=== PATIENT | male | born 1960 | race Caucasian/White ===

== ENCOUNTER 2018-10-16 19:16 | Emergency (ER) | payer MEDICARE ==
[2018-10-16 19:34] VITALS: RESP 18; TEMP 98
[2018-10-16] MEDS ORDERED: LORazepam 2 MG/ML INJ IV STA (19:53)
[2018-10-16] MEDS ORDERED: SODIUM CHLORIDE 0.9% 1,000 ML IV ONE ×2 (19:53)
--- NOTE | 2018-10-16 20:20 | ED ---
Altered Mental Status HPI - General Chief Complaint: Altered Mental Status Stated Complaint: Altered Mental Time Seen by Provider: 10/16/18 19:26 Source: patient, family, EMS, RN notes reviewed, old records reviewed Mode of arrival: EMS Limitations: altered mental status - History of Present Illness Initial Comments: This is a 58-year-old male the ER for evaluation. Patient has complicated medical and psychiatric history. Patient suffers from Parkinson's disease and knows early-onset dementia multiple new and different medications with multiple recent medication changes. Patient has a significant hallucinations today. Family state patient for geriatric psych and Parkinson's specialist Rocael Schumacher secondary to weather unable to give patient there, patient brought to our emergency room by EMS for evaluation regarding hallucinations altered mental status not acting appropriately. Patient is a poor strain secondary to altered mental status. is at bedside reports history. MD Complaint: altered mental status, confusion, other (Significant hallucinations) -: days(s) Severity: severe Consistency of Symptoms: getting worse Context: history of similar presentation (Parkinsonian disease and dementia) Associated Symptoms: diaphoresis, other (Confusion) - Related Data Home Medications Medication Instructions Recorded Confirmed Aspirin EC [Ecotrin] 81 mg PO DAILY 09/23/14 10/16/18 Finasteride [Proscar] 5 mg PO HS 09/23/14 10/16/18 [place]-3 Fatty Acids [[place]-3] 1,000 mg PO DAILY 09/23/14 10/16/18 Vitamin B Complex 1 tab PO DAILY 09/23/14 10/16/18 traMADol HCl [Ultram] 50 mg PO TID 09/23/14 10/16/18 Baclofen [Lioresal] 10 mg PO QID PRN 10/16/18 10/16/18 Benazepril HCl [Lotensin] 40 mg PO HS 10/16/18 10/16/18 Carbidopa-Levodopa 25-100 mg 3 tab PO 5XD@06,09,12,15,18 10/16/18 10/16/18 [Sinemet 25-100] Carbidopa/Levodopa [Sinemet CR 1 tab PO HS@2100 10/16/18 10/16/18 50-200 mg] Cholecalciferol [Vitamin D3 (25 1,000 unit PO DAILY 10/16/18 10/16/18 Mcg = 1000 Iu)] DULoxetine HCL [Cymbalta] 90 mg PO HS 10/16/18 10/16/18 Memantine [Namenda] 10 mg PO BID 10/16/18 10/16/18 Omeprazole 40 mg PO DAILY 10/16/18 10/16/18 QUEtiapine [SEROquel] 50 mg PO HS 10/16/18 10/16/18 clonazePAM [KlonoPIN] 1 mg PO HS 10/16/18 10/16/18 rOPINIRole HCL [Requip] 0.5 mg PO HS@1800 10/16/18 10/16/18 Allergies Allergy/AdvReac Type Severity Reaction Status Date / Time Penicillins Allergy Unknown Swelling, Verified 10/16/18 20:09 Hives Tetanus Vaccines and Toxoid Allergy Unknown Swelling, Verified 10/16/18 20:09 [Tetanus Vaccines & Toxoid] Hives Review of Systems ROS Statement: Those systems with pertinent positive or pertinent negative responses have been documented in the HPI. ROS Other: All systems not noted in ROS Statement are negative. Past Medical History Past Medical History: Hypertension, Mitral Valve Prolapse (MVP), Neurologic Disorder, Prostate Disorder Additional Past Medical History / Comment(s): PARKINSONS DISEASE, RLS, TREMORS WITH RANDOM LEG MOVEMENT, RIGIDITY-SOME DIFFICULTY WALKING AT TIMES USES CANE PRN., HX OF BACK INJURY WITH PINCHED NERVE & BACK PAIN-SEEING DR VICENTE FOR INJECTIONS &TX., ENLARGED PROSTATE AND LEAKY BLADDER., TESTING SCHEDULED FOR SLEEP APNEA. History of Any Multi-Drug Resistant Organisms: None Reported Additional Past Surgical History / Comment(s): FINGER SURGERY, LYMPH NODE REMOVED RIGHT AXCILLA. Past Anesthesia/Blood Transfusion Reactions: No Reported Reaction Past Psychological History: Anxiety Smoking Status: Never smoker Past Alcohol Use History: None Reported Past Drug Use History: None Reported - Past Family History Brother(s) Family Medical History: Cancer Additional Family Medical History / Comment(s): FROM PROSTATE CANCER. General Exam Limitations: altered mental status General appearance: alert, in no apparent distress Head exam: Present: atraumatic, normocephalic, normal inspection Eye exam: Present: normal appearance, EOMI. Absent: scleral icterus, conjunctival injection, periorbital swelling ENT exam: Present: normal exam, mucous membranes moist Neck exam: Present: normal inspection. Absent: tenderness, meningismus, lymphadenopathy Respiratory exam: Present: normal lung sounds bilaterally. Absent: respiratory distress, wheezes, rales, rhonchi, stridor Cardiovascular Exam: Present: regular rate, normal rhythm, normal heart sounds. Absent: systolic murmur, diastolic murmur, rubs, gallop, clicks GI/Abdominal exam: Present: soft, normal bowel sounds. Absent: distended, tenderness, guarding, rebound, rigid Extremities exam: Present: normal inspection, full ROM, normal capillary refill. Absent: tenderness, pedal edema, joint swelling, calf tenderness Back exam: Present: normal inspection Neurological exam: Present: alert, oriented X3, CN II-XII intact Psychiatric exam: Present: normal affect, normal mood Skin exam: Present: warm, dry, intact, normal color. Absent: rash Course Vital Signs 10/16/18 10/16/18 10/17/18 19:21 23:40 03:30 Temperature 98 F 98 F Pulse Rate 80 78 Respiratory 18 18 Rate Blood Pressure 166/118 133/88 145/90 O2 Sat by Pulse 95 98 95 Oximetry - Reevaluation(s) Reevaluation #1: 10/16/18 20:19 Medical records reviewed Reevaluation #2: 10/16/18 20:57 Patient is severe dementia and hallucinations 10/16/18 20:57 Is improving with medication started restlessness Reevaluation #3: 10/16/18 20:58 Spoke with at length regarding symptoms and treatment care, she will improve her transfer for inpatient treatment Medical Decision Making - Medical Decision Making 58 male presented today for evaluation of worsening dementia, hallucinations, patient at this point has become hasn't to himself from people around him, patient is urged inpatient psychiatric evaluation by his neurologist as well as geriatric psychiatry - Lab Data Result diagrams: 10/16/18 20:30 10/16/18 20:30 Lab Results 10/16/18 10/16/18 10/16/18 Range/Units 20:30 20:30 20:30 WBC 9.5 (3.8-10.6) k/uL RBC 4.79 (4.30-5.90) m/uL Hgb 14.4 (13.0-17.5) gm/dL Hct 41.2 (39.0-53.0) % MCV 85.9 (80.0-100.0) fL MCH 30.1 (25.0-35.0) pg MCHC 35.0 (31.0-37.0) g/dL RDW 12.7 (11.5-15.5) % Plt Count 256 (150-450) k/uL Neutrophils % 74 % Lymphocytes % 17 % Monocytes % 6 % Eosinophils % 1 % Basophils % 1 % Neutrophils # 7.0 (1.3-7.7) k/uL Lymphocytes # 1.6 (1.0-4.8) k/uL Monocytes # 0.6 (0-1.0) k/uL Eosinophils # 0.1 (0-0.7) k/uL Basophils # 0.1 (0-0.2) k/uL PT (9.0-12.0) sec INR (<1.2) APTT (22.0-30.0) sec Sodium 140 (137-145) mmol/L Potassium 3.9 (3.5-5.1) mmol/L Chloride 105 (98-107) mmol/L Carbon Dioxide 25 (22-30) mmol/L Anion Gap 10 mmol/L BUN 18 (9-20) mg/dL Creatinine 0.76 (0.66-1.25) mg/dL Est GFR (CKD-EPI)AfAm >90 (>60 ml/min/1.73 sqM) Est GFR (CKD-EPI)NonAf >90 (>60 ml/min/1.73 sqM) Glucose 100 H (74-99) mg/dL Calcium 9.6 (8.4-10.2) mg/dL Total Bilirubin 0.6 (0.2-1.3) mg/dL AST 33 (17-59) U/L ALT 23 (21-72) U/L Alkaline Phosphatase 77 (38-126) U/L Ammonia <9 (<30) umol/L Creatine Kinase 255 H (55-170) U/L Troponin I (0.000-0.034) ng/mL Total Protein 7.1 (6.3-8.2) g/dL Albumin 4.6 (3.5-5.0) g/dL Urine Color Urine Appearance (Clear) Urine pH (5.0-8.0) Ur Specific [place] (1.001-1.035) Urine Protein (Negative) Urine Glucose (UA) (Negative) Urine Ketones (Negative) Urine Blood (Negative) Urine Nitrite (Negative) Urine Bilirubin (Negative) Urine Urobilinogen (<2.0) mg/dL Ur Leukocyte Esterase (Negative) Salicylates <1.0 mg/dL Urine Opiates Screen (NotDetected) Ur Oxycodone Screen (NotDetected) Urine Methadone Screen (NotDetected) Ur Propoxyphene Screen (NotDetected) Acetaminophen <10.0 ug/mL Ur Barbiturates Screen (NotDetected) Phenytoin <3.0 ug/mL Valproic Acid <10.0 ug/mL Carbamazepine <3.0 ug/mL U Tricyclic Antidepress (NotDetected) Ur Phencyclidine Scrn (NotDetected) Ur Amphetamines Screen (NotDetected) U Methamphetamines Scrn (NotDetected) U Benzodiazepines Scrn (NotDetected) Urine Cocaine Screen (NotDetected) U Marijuana (THC) Screen (NotDetected) Serum Alcohol <10 mg/dL 10/16/18 10/16/18 10/16/18 Range/Units 20:30 20:30 20:30 WBC (3.8-10.6) k/uL RBC (4.30-5.90) m/uL Hgb (13.0-17.5) gm/dL Hct (39.0-53.0) % MCV (80.0-100.0) fL MCH (25.0-35.0) pg MCHC (31.0-37.0) g/dL RDW (11.5-15.5) % Plt Count (150-450) k/uL Neutrophils % % Lymphocytes % % Monocytes % % Eosinophils % % Basophils % % Neutrophils # (1.3-7.7) k/uL Lymphocytes # (1.0-4.8) k/uL Monocytes # (0-1.0) k/uL Eosinophils # (0-0.7) k/uL Basophils # (0-0.2) k/uL PT 10.2 (9.0-12.0) sec INR 1.0 (<1.2) APTT 24.2 (22.0-30.0) sec Sodium (137-145) mmol/L Potassium (3.5-5.1) mmol/L Chloride (98-107) mmol/L Carbon Dioxide (22-30) mmol/L Anion Gap mmol/L BUN (9-20) mg/dL Creatinine (0.66-1.25) mg/dL Est GFR (CKD-EPI)AfAm (>60 ml/min/1.73 sqM) Est GFR (CKD-EPI)NonAf (>60 ml/min/1.73 sqM) Glucose (74-99) mg/dL Calcium (8.4-10.2) mg/dL Total Bilirubin (0.2-1.3) mg/dL AST (17-59) U/L ALT (21-72) U/L Alkaline Phosphatase (38-126) U/L Ammonia (<30) umol/L Creatine Kinase (55-170) U/L Troponin I <0.012 (0.000-0.034) ng/mL Total Protein (6.3-8.2) g/dL Albumin (3.5-5.0) g/dL Urine Color Yellow Urine Appearance Clear (Clear) Urine pH 5.5 (5.0-8.0) Ur Specific [place] 1.021 (1.001-1.035) Urine Protein Trace H (Negative) Urine Glucose (UA) Negative (Negative) Urine Ketones Negative (Negative) Urine Blood Negative (Negative) Urine Nitrite Negative (Negative) Urine Bilirubin Negative (Negative) Urine Urobilinogen 2.0 (<2.0) mg/dL Ur Leukocyte Esterase Negative (Negative) Salicylates mg/dL Urine Opiates Screen Not Detected (NotDetected) Ur Oxycodone Screen Not Detected (NotDetected) Urine Methadone Screen Not Detected (NotDetected) Ur Propoxyphene Screen Not Detected (NotDetected) Acetaminophen ug/mL Ur Barbiturates Screen Not Detected (NotDetected) Phenytoin ug/mL Valproic Acid ug/mL Carbamazepine ug/mL U Tricyclic Antidepress Detected H (NotDetected) Ur Phencyclidine Scrn Not Detected (NotDetected) Ur Amphetamines Screen Not Detected (NotDetected) U Methamphetamines Scrn Not Detected (NotDetected) U Benzodiazepines Scrn Not Detected (NotDetected) Urine Cocaine Screen Not Detected (NotDetected) U Marijuana (THC) Screen Not Detected (NotDetected) Serum Alcohol mg/dL - EKG Data -: EKG Interpreted by Me (EKG shows sinus rhythm rate of 84, CO 160, QRS 70, QTc 449) Disposition Clinical Impression: Altered mental status, Parkinsons disease, Parkinson's disease dementia Disposition: HOME SELF-CARE Condition: Fair Instructions (If sedation given, give patient instructions): Altered Mental Status (ED) Is patient prescribed a controlled substance at d/c from ED?: No Referrals: Lucretia Stewart DO [Primary Care Provider] - 1-2 days - Out of Hospital Transfer - Req. Specs Out of Hospital Transfer - Requested Specifics: Other Emergency Center ([facility])
[2018-10-16] MEDS ORDERED: BACLOFEN 10 MG TAB PO PRN (20:35)
[2018-10-16 20:42] LABS: Appearance,Urine Clear (Clear); Bilirubin,Urine Negative (Negative); Blood,Urine Negative (Negative); Color,Urine Yellow; Glucose,Urine (UA) Negative (Negative); Ketones,Urine Negative (Negative); Leukocyte Esterase,Urine Negative (Negative); Nitrite,Urine Negative (Negative); PH, Urine 5.5 (5.0-8.0); Protein,Urine Trace (Negative); Specific Gravity,Urine 1.021 (1.001-1.035)
[2018-10-16 20:43] LABS: Basophils # (A) 0.1 k/uL (0-0.2); Basophils % (A) 1 %; Eosinophils # (A) 0.1 k/uL (0-0.7); Eosinophils % (A) 1 %; HCT 41.2 % (39.0-53.0); HGB 14.4 gm/dL (13.0-17.5); Lymphocytes # (A) 1.6 k/uL (1.0-4.8); Lymphocytes % (A) 17 %; MCH 30.1 pg (25.0-35.0); MCV 85.9 fL (80.0-100.0); Monocytes # (A) 0.6 k/uL (0-1.0); Monocytes % (A) 6 %; Neutrophils % (A) 74 %; Platelet Count 256 k/uL (150-450); RBC 4.79 m/uL (4.30-5.90); RDW 12.7 % (11.5-15.5); WBC 9.5 k/uL (3.8-10.6)
[2018-10-16 20:50] LABS: Amphetamine Screen,Urine Not Detected (NotDetected); Barbiturate Screen,Urine Not Detected (NotDetected); Benzodiazepines Screen,Urine Not Detected (NotDetected); Cocaine Screen,Urine Not Detected (NotDetected); Methadone Screen, Urine Not Detected (NotDetected); Opiate Screen,Urine Not Detected (NotDetected); Oxycodone Screen, Urine Not Detected (NotDetected); Phencyclidine Screen,Urine Not Detected (NotDetected); Tricyclic Antidepressant,Urine Detected (NotDetected); Urn Cannabinoid Scrn Not Detected (NotDetected)
[2018-10-16 20:54] LABS: Partial Thromboplastin Time 24.2 sec (22.0-30.0); Prothrombin Time 10.2 sec (9.0-12.0)
[2018-10-16 20:55] LABS: ALT 23 U/L (21-72); AST 33 U/L (17-59); Acetaminophen <10.0 ug/mL; African American GFR (CKD) >90 (>60 ml/min/1.73 sqM); Albumin 4.6 g/dL (3.5-5.0); Alcohol <10 mg/dL; Alkaline Phosphatase 77 U/L (38-126); Anion Gap 10 mmol/L; Blood Urea Nitrogen 18 mg/dL (9-20); Calcium 9.6 mg/dL (8.4-10.2); Carbamazepine (Tegretol) <3.0 ug/mL; Carbon Dioxide 25 mmol/L (22-30); Chloride 105 mmol/L (98-107); Creatine Kinase 255 U/L (55-170); Glucose 100 mg/dL (74-99); Phenytoin (Dilantin) <3.0 ug/mL; Potassium 3.9 mmol/L (3.5-5.1); Salicylate <1.0 mg/dL; Sodium 140 mmol/L (137-145); Total Bilirubin 0.6 mg/dL (0.2-1.3); Total Protein 7.1 g/dL (6.3-8.2)
[2018-10-16] MEDS ORDERED: MEMANTINE 10 MG TAB PO SCH (21:00)
[2018-10-16] MEDS ORDERED: LISINOPRIL 20 MG TAB PO SCH (21:00)
[2018-10-16] MEDS ORDERED: QUEtiapine 25 MG TAB PO SCH (21:00)
[2018-10-16] MEDS ORDERED: clonazePAM 0.5 MG TAB PO SCH (21:00)
[2018-10-16] MEDS ORDERED: DULoxetine HCL 30 MG CAPSULE.DR PO SCH (21:00)
[2018-10-16] MEDS ORDERED: FINASTERIDE 5 MG TAB PO SCH (21:00)
[2018-10-16] MEDS ORDERED: CARBIDOPA-LEVODOPA ER 50-200MG 1 EACH TABLET.ER PO SCH (21:00)
[2018-10-16] MEDS: clonazePAM 1 MG TAB PO STA ×2 (21:16→21:26)
[2018-10-16] MEDS ORDERED: traMADol 50 MG TAB PO SCH (22:00)
[2018-10-17 03:31] VITALS: BP 145/90; PULSE 78
[2018-10-17] MEDS ORDERED: CARBIDOPA-LEVODOPA 25-100 MG 1 EACH TAB PO SCH (06:00)
[2018-10-17] MEDS ORDERED: CHOLECALCIFEROL 1,000 UNIT TAB PO SCH (09:00)
[2018-10-17] MEDS ORDERED: NON-FORMULARY DRUG (Vitamin B Complex [Vitamin B Complex] 1 TAB) PO SCH (09:00)
[2018-10-17] MEDS ORDERED: NON-FORMULARY DRUG (Omeprazole [Omeprazole] 40 MG) PO SCH (09:00)
[2018-10-17] MEDS ORDERED: NON-FORMULARY DRUG (Aspirin Ec 81 MG) PO SCH (09:00)
[2018-10-17] MEDS ORDERED: NON-FORMULARY DRUG (Omega-3 Fatty Acids [Omega-3] 1,000 MG) PO SCH (09:00)
== END 2018-10-17 03:38 | disposition other institution (70) ==
LOC: EC 19:16
DX: R41.82 Altered mental status, unspecified (principal); G20 Parkinson's disease; F02.80 Dementia in other diseases classified elsewhere, unspecified severity, without behavioral disturbance, psychotic disturbance, mood disturbance, and anxiety; R44.1 Visual hallucinations; I10 Essential (primary) hypertension; N40.0 Benign prostatic hyperplasia without lower urinary tract symptoms; F41.9 Anxiety disorder, unspecified; G25.81 Restless legs syndrome; Z79.82 Long term (current) use of aspirin; Z86.79 Personal history of other diseases of the circulatory system; Z79.899 Other long term (current) drug therapy; Z88.0 Allergy status to penicillin; Z88.7 Allergy status to serum and vaccine; Z99.89 Dependence on other enabling machines and devices
CPT/HCPCS: 36415; 80156; 80164; 80053; 82140; 82550; 80185; 84484; 85025; 85610; 85730; 81003; 80306; 83520; 99285; G0480 ×2; S0138; 80320; 80329; 93005